=== PATIENT | male | born 1955 | race African-American/Black ===

== ENCOUNTER 2023-03-09 15:46 | Emergency (ER) | payer SELFPAY ==
[~2023-03-09] VITALS: Ht 170.2 cm; Wt 73.0 kg
[2023-03-09 15:57] VITALS: TEMP 98.9; O2SAT 94
[2023-03-09] MEDS ORDERED: LIDOCAINE HCL/PF 1% 10 MG/ML 5ML VIAL INFIL ONE (16:30)
[2023-03-09] MEDS ORDERED: CEPHALEXIN 250MG CAPSULE PO ONE (16:30)
[2023-03-09] MEDS ORDERED: IBUPROFEN 600MG TABLET PO ONE (16:30)
[2023-03-09] MEDS ORDERED: TETANUS, DIPHTHERIA, PERTUSSIS VAC/PF 0.5ML (>10YR OLD) IM ONE (16:30)
[2023-03-09] MEDS ORDERED: BACITRACIN ZINC OINT UDPKT TOP ONE (16:30)
[2023-03-09] MEDS ORDERED: CEPH500T MT (17:42)
[2023-03-09] MEDS ORDERED: IBUP-2029 MT (17:42)
[2023-03-09] MEDS ORDERED: BO1 TP (17:42)
[2023-03-09 17:47] VITALS: BP 126/83; PULSE 100; RESP 18
== END 2023-03-09 18:23 | disposition left against medical advice (07) ==
LOC: ER 15:46
DX: S62.91XB Unspecified fracture of right hand, initial encounter for open fracture (principal); F10.229 Alcohol dependence with intoxication, unspecified; X58.XXXA Exposure to other specified factors, initial encounter; Y93.89 Activity, other specified; Y92.89 Other specified places as the place of occurrence of the external cause; Y99.8 Other external cause status; Y90.0 Blood alcohol level of less than 20 mg/100 ml
CPT/HCPCS: 73130; 90715; 12002; 90471; 99284; J3490; Z7610